=== PATIENT | male | born 1955 | race Caucasian/White ===

== ENCOUNTER 2017-09-27 08:25 | Day surgery (SDC) | payer MEDICAID ==
[~2017-09-27 08:25] MED LIST: ATROPINE 1 MG/10 ML SYRINGE IV; DIPHENHYDRAMINE 50 MG INJ IV; EPHEDrine SULFATE 50 MG/5 ML SYG IV; FENTAnyl 50 MCG/ML VIAL IV; HYDROmorphONE (0.2 MG/ML) 10ML SYG IV; LABETALOL HCL 20MG INJ IV; MEPERIDINE 25 MG INJ IV; MIDAZOLAM 1 MG/ML 2 ML INJ IV; ONDANSETRON 4 MG INJ IV; OXYCODONE/ACETAMINOPHEN (5/325) TAB PO; hydrALAzine 20 MG INJ IV; morphine (1 MG/ML) 10ML SYRINGE IV
[2017-09-27 09:59] LABS: ADD MAN DIFF? NO
[2017-09-27] MEDS ORDERED: LIDOCAINE 1% (MPF) 30 ML INJ (09:59)
[2017-09-27] MEDS ORDERED: GELATIN SIZE 100 SPONGE (09:59)
[2017-09-27] MEDS ORDERED: THROMBIN 5000 UNIT VIAL (10:00)
[2017-09-27] MEDS ORDERED: HEPARIN 1000 UNITS/ML 10 ML INJ (10:00)
[2017-09-27] MEDS ORDERED: PROPOFOL 20 ML (10:01)
[2017-09-27] MEDS ORDERED: LIDOCAINE 2% (SDV) 5 ML INJ (10:01)
[2017-09-27] MEDS ORDERED: FENTAnyl 50 MCG/ML VIAL (10:01)
[2017-09-27] MEDS ORDERED: ROCURONIUM 50 MG INJ (10:01)
[2017-09-27] MEDS ORDERED: MIDAZOLAM 1 MG/ML 2 ML INJ (10:01)
[2017-09-27] MEDS ORDERED: GLYCOPYRROLATE 0.4 MG INJ (10:01)
[2017-09-27] MEDS ORDERED: NEOSTIGMINE 3 MG/3 ML SYRINGE (10:01)
[2017-09-27 10:02] LABS: BASOPHIL # 0.1 10^3/ul (0.0-0.1); BASOPHILS % 0.8 % (0.0-2.0); EOSINOPHILS # 0.3 10^3/ul (0.0-0.5); HEMATOCRIT 41.7 % (42.0-52.0); HEMOGLOBIN 13.5 g/dl (14.0-18.0); LYMPHOCYTES # 1.3 10^3/ul (0.8-2.9); LYMPHOCYTES % 20.1 % (15.0-51.0); MEAN CORPUSCULAR HEMOGLOBIN 28.8 pg (29.0-33.0); MEAN CORPUSCULAR HGB CONC 32.4 g/dl (32.0-37.0); MEAN CORPUSCULAR VOLUME 89.1 fl (82.0-101.0); MEAN PLATELET VOLUME 10.3 fl (7.4-10.4); MONOCYTE # 0.7 10^3/ul (0.3-0.9); MONOCYTES % 11.2 % (0.0-11.0); NEUTROPHIL # 4.1 10^3/ul (1.6-7.5); NEUTROPHILS % 62.6 % (39.0-77.0); PLATELET COUNT 253 10^3/UL (140-415); RED BLOOD COUNT 4.68 10^6/ul (4.70-6.10); RED CELL DISTRIBUTION WIDTH 15.2 % (11.5-14.5)
[2017-09-27 10:02] LABS: WHITE BLOOD COUNT 6.6 10^3/ul (4.8-10.8)
[2017-09-27] MEDS ORDERED: ONDANSETRON 4 MG INJ ×2 (10:02→10:07)
[2017-09-27] MEDS ORDERED: DEXAMETHASONE 4 MG/ML 1 ML INJ (10:02)
[2017-09-27] MEDS: HEPARIN 1000 UNITS/ML 10 ML INJ IRR (10:10)
[2017-09-27] MEDS: LIDOCAINE 1% (MPF) 30 ML INJ INJ (10:10)
[2017-09-27] MEDS ORDERED: ROPIVACAINE 0.5 % 30 ML VIAL (10:18)
[2017-09-27 10:31] LABS: ANION GAP 20 (8-16); CARBON DIOXIDE 30 mmol/L (21-31); CHLORIDE 97 mmol/L (97-110); GLUCOSE 91 mg/dl (70-220)
[2017-09-27 10:32] LABS: INR 2.42; PT RATIO 2.1; SODIUM 142 mmol/L (135-144)
[2017-09-27 10:35] LABS: BLOOD UREA NITROGEN 66 mg/dl (7-20); CALCIUM 9.6 mg/dl (8.4-10.2); CREATININE 6.96 mg/dl (0.61-1.24)
[2017-09-27 10:36] LABS: POTASSIUM 5.3 mmol/L (3.5-5.1)
[2017-09-27 10:54] LABS: PARTIAL THROMBOPLASTIN TIME 46.6 Sec (25.0-35.0)
== END 2017-09-27 14:07 | disposition home or self-care (01) ==
LOC: SDS 08:25
DX: I12.0 Hypertensive chronic kidney disease with stage 5 chronic kidney disease or end stage renal disease (principal); N18.6 End stage renal disease; E78.5 Hyperlipidemia, unspecified; E11.9 Type 2 diabetes mellitus without complications; I25.10 Atherosclerotic heart disease of native coronary artery without angina pectoris
CPT/HCPCS: 36821; 80048; 82962; 85025; 85610; 85730